=== PATIENT | female | born 1935 | race Caucasian/White ===

== ENCOUNTER 2016-09-13 18:47 | Observation (INO) | payer OTHER, BC ==
--- NOTE | 2016-09-13 19:02 | CPEKG ---
Heart Rate: 90 RR Interval: 667 P-R Interval: 96 QRSD Interval: 102 QT Interval: 392 QTC Interval: 480 P Inwood: 0 QRS Inwood: -61 T Wave Inwood: 106 EKG Severity - ABNORMAL ECG - EKG Impression: VENTRICULAR-PACED COMPLEXES EKG Impression: MARKEDLY POSTERIOR QRS AXIS Electronically Signed By: Jerod Carrillo 13-Sep-2016 20:37:08
--- NOTE | 2016-09-13 19:31 | EDPHY ---
H & P Time Seen by Provider: 09/13/16 19:23 HPI/ROS: Chief complaint. Chest pain HPI. 81-year-old female with known heart disease presents with 3 hour history of left anterior chest discomfort. She describes as pressure. No radiation. No shortness of breath. No previous similar symptoms. No fever cough. No unusual leg pain or swelling. No change in her discomfort with breathing, position, movement, exertion. Patient had a heart catheterization in June 2015 which shows non ischemic cardiomyopathy and mild to moderate nonobstructive coronary artery disease with lesions to 50% ROS Constitutional. no fever/chills, no weakness Eyes. no problems with vision ENT. no sore throat, no nasal drainage Cardiovascular. Chest pain Respiratory. no shortness of breath, no cough Abdominal. no abdominal pain, no nausea/vomiting, no diarrhea . no problems urinating MS. no calf pain/swelling, no neck/back pain, no joint pain Skin. no rash Lymph. no swollen glands Neuro. no headache, no dizziness, no difficulty walking or with speech Past Medical/Surgical History: Past medical history nonischemic cardiomyopathy, left bundle branch block, paroxysmal atrial fibrillation, moderate coronary artery disease, CHF, rheumatoid arthritis, psoriasis, chronic kidney disease, myelodysplastic syndrome, hypertension, pacer Social History: , nonsmoker, no alcohol Smoking Status: Former smoker Physical Exam: General Appearance: Alert well-developed female moderate distress vital signs are stable with O2 saturation 88% on room air Eyes: Pupils equal and round no pallor or injection. ENT, Mouth: Mucous membranes are moist. Respiratory: There are no retractions, lungs are clear to auscultation. Cardiovascular: Regular rate and rhythm. Gastrointestinal: Abdomen is soft and nontender, no masses, bowel sounds normal. Neurological: Awake and alert, sensory and motor exams grossly normal. Skin: Warm and dry, no rashes. Musculoskeletal: Neck is supple nontender. Extremities symmetrical, full range of motion. Psychiatric: Patient is oriented X 3, there is no agitation. Constitutional: Initial Vital Signs Temperature (C) 36 C 09/13/16 18:48 Heart Rate 95 09/13/16 18:48 Respiratory Rate 22 H 09/13/16 18:48 Blood Pressure 169/88 H 09/13/16 18:48 O2 Sat (%) 88 L 09/13/16 18:48 O2 Delivery Mode Room Air Allergies/Adverse Reactions: No Known Allergies Allergy (Unverified 07/21/15 15:20) Home Medications: Medication Instructions Recorded Calcium Carb W/Vit D [Calcium Carb 500 mg PO DAILY 07/21/15 W/Vit D 500/200 (*)] Ferrous Sulfate [Ferrous Sulf 325 325 mg PO DAILY 07/21/15 MG (*)] Multivitamins [Multivitamin (*)] 1 each PO DAILY 07/21/15 Folic Acid [Folic Acid 1 MG (*)] 1 mg PO DAILY #30 tab 08/15/15 Ascorbic Acid [Vitamin C 500 mg 500 mg PO DAILY 06/26/16 (*)] Pantoprazole Sodium [Protonix 40mg 20 mg PO DAILY 06/26/16 (*)] Ustekinumab [STELARA] 45 mg SQ Q90D 06/26/16 Acetamn/Diphenhydramine 500/25 1 each PO HS #0 tab 06/30/16 [Tylenol PM (*)] Amiodarone HCl [Pacerone (*)] 200 mg PO DAILY #30 tab 06/30/16 Atorvastatin Calcium [Lipitor 20 20 mg PO DAILY #0 tab 06/30/16 mg (*)] Dabigatran Etexilate Mesylate 75 mg PO BID #60 capsule 06/30/16 [Pradaxa] Atorvastatin Calcium [Lipitor 20 20 mg PO DAILY 09/13/16 mg (*)] Budesonide [Budesonide EC] 3 mg PO TID 09/13/16 Carvedilol [Coreg (*)] 6.25 mg PO BIDMEAL 09/13/16 Lisinopril [Zestril 2.5 mg (*)] 2.5 mg PO DAILY 09/13/16 Medical Decision Making - Diagnostics EKG Interpretation: EKG interpreted by me shows paced rhythm with left axis deviation and evidence for left bundle branch block. Interventricular conduction delay. No significant ST elevation or depression. Rate is 90 Procedures: IV normal saline, monitor, aspirin ED Course/Re-evaluation: On re-evaluation patient is stable no longer have any chest discomfort at 9:05 p.m.. However then she tells me that the pain is worse with deep breathing which previously when I asked her she had no exacerbating or relieving factors. A D-dimer is ordered. I discussed the case with who agrees to the admission Differential Diagnosis: I considered acute coronary syndrome, pneumonia, pulmonary embolus, pneumothorax - Data Points Laboratory Results: Laboratory Results 09/13/16 19:16 09/13/16 19:16 09/13/16 19:16 WBC 8.77 10^3/uL (3.80-9.50) RBC 4.13 L 10^6/uL (4.18-5.33) Hgb 12.6 g/dL (12.6-16.3) Hct 37.9 L % (38.0-47.0) MCV 91.8 fL (81.5-99.8) MCH 30.5 pg (27.9-34.1) MCHC 33.2 g/dL (32.4-36.7) RDW 14.7 % (11.5-15.2) Plt Count 156 10^3/uL (150-400) MPV 9.5 fL (8.7-11.7) Neut % (Auto) 75.1 H % (39.3-74.2) Lymph % (Auto) 10.3 L % (15.0-45.0) [place] % (Auto) 12.9 % (4.5-13.0) Eos % (Auto) 0.5 L % (0.6-7.6) Baso % (Auto) 0.6 % (0.3-1.7) Nucleat RBC Rel Count 0.0 % (0.0-0.2) Absolute Neuts (auto) 6.60 H 10^3/uL (1.70-6.50) Absolute Lymphs (auto) 0.90 L 10^3/uL (1.00-3.00) Absolute Monos (auto) 1.13 H 10^3/uL (0.30-0.80) Absolute Eos (auto) 0.04 10^3/uL (0.03-0.40) Absolute Basos (auto) 0.05 10^3/uL (0.02-0.10) Absolute Nucleated RBC 0.00 10^3/uL (0-0.01) Immature Gran % 0.6 % (0.0-1.1) Immature Gran # 0.05 10^3/uL (0.00-0.10) Sodium 143 mEq/L (134-144) Potassium 3.5 mEq/L (3.5-5.2) Chloride 104 mEq/L (97-110) Carbon Dioxide 26 mEq/l (22-31) Anion Gap 13 mEq/L (8-16) BUN 11 mg/dL (7-23) Creatinine 0.8 mg/dL (0.6-1.0) Estimated GFR > 60 Glucose 137 H mg/dL (70-100) Calcium 8.9 mg/dL (8.5-10.4) Troponin I 0.030 ng/mL (0-0.034) NT-Pro-B Natriuret Pep 894 H pg/mL (0-450) Medications Given: Discontinued Medications Aspirin (Aspirin) 324 mg PO EDNOW ONE Stop: 09/13/16 19:42 Last Admin: 09/13/16 20:03 Dose: 324 mg Departure - Departure Disposition: [facility] Inpatient Acute Clinical Impression: Chest pain Qualifiers: Chest pain type: unspecified Qualifier Code: (R07.9) Chest pain, unspecified Condition: Good Referrals: Wayne Winston MD [Primary Care Provider] - As per Instructions
[2016-09-13] MEDS ORDERED: ASPIRIN 81 MG CHEWABLE TAB PO ONE (19:41)
[2016-09-13 19:49] LABS: % IMMATURE GRANULYOCYTES 0.6 % (0.0-1.1); ABSOLUTE IMMATURE GRANULOCYTES 0.05 10^3/uL (0.00-0.10); ADD DIFF? NO; ADD MORPH? NO; ADD SCAN? NO; ATYPICAL LYMPHOCYTE FLAG 0 (0-99); FRAGMENT RBC FLAG 20 (0-99); HEMATOCRIT 37.9 % (38.0-47.0); HEMOGLOBIN 12.6 g/dL (12.6-16.3); LEFT SHIFT FLG 0 (0-99); LIPEMIA HEMOLYSIS FLAG 80 (0-99); MEAN CELL HEMOGLOBIN 30.5 pg (27.9-34.1); MEAN CELL HEMOGLOBIN CONCENTR. 33.2 g/dL (32.4-36.7); MEAN CELL VOLUME 91.8 fL (81.5-99.8); MEAN PLATELET VOLUME 9.5 fL (8.7-11.7); PLATELET CLUMPS FLAG 0 (0-99); PLATELET COUNT 156 10^3/uL (150-400); RED BLOOD CELL COUNT 4.13 10^6/uL (4.18-5.33); RED CELL DISTRIBUTION WIDTH 14.7 % (11.5-15.2)
[2016-09-13 19:58] LABS: ANION GAP 13 mEq/L (8-16); CALCIUM 8.9 mg/dL (8.5-10.4); CARBON DIOXIDE 26 mEq/l (22-31); CHLORIDE 104 mEq/L (97-110); CREATININE 0.8 mg/dL (0.6-1.0); GLOMERULAR FILTRATION RATE > 60; GLUCOSE 137 mg/dL (70-100); POTASSIUM 3.5 mEq/L (3.5-5.2); SODIUM 143 mEq/L (134-144)
[2016-09-13] MEDS ORDERED: NOREPINEPHRINE BITARTRATE 4 MG in D5W 500 ML IV ONE (21:04)
--- NOTE | 2016-09-13 21:10 | DX ---
Portable AP Upright Chest September 13, 2016, 7:53 p.m. Clinical History: 81-year-old female with chest pain. Comparison Studies: Chest, dated July 08, 2016, and June 30, 2016. Findings: Again noted is a trilead left subclavian transvenous pacemaker with the proximal lead in th e right atrium and distal leads in the right ventricle and projected over the coronary sinus. There a re mild hypoventilatory features. There is borderline-cardiomegaly, slightly augmented by the portabl e AP technique. There is some mild peribronchial thickening. There is no focal infiltrate, peripheral interstitial edema, or pneumothorax. There is a retrocardiac hiatal hernia which has been present be fore. There are surgical clips in the right upper quadrant of the abdomen. There is a levorotatory melita mbar scoliosis with multilevel degenerative changes. Impression: 1. Status post prior pacemaker, with no evidence of a pneumothorax. 2. Borderline-cardiomegaly with peribronchial thickening. 3. Retrocardiac hiatal hernia.
[2016-09-13] MEDS ORDERED: ACETAMN/DIPHENHYDRAMINE 500/25MG TAB PO SCH (23:30)
[2016-09-13] MEDS ORDERED: MAALOX/LIDO/HYOSC GI COCKTAIL 55 ML BOTTLE PO ONE (23:47)
[2016-09-13] MEDS ORDERED: CALCIUM CARBONATE 500 MG CHEWABLE TAB PO PRN (23:47)
--- NOTE | 2016-09-13 23:53 | PDGENHP ---
History and Physical - Chief Complaint Acute chest pain - History of Present Illness PCP: Dr. Winston Window Installer: Dr. Reynoso HPI: 81-year-old female presents with acute chest pain characterized as pressure located in her central chest, exacerbated by deep inspiration. Onset of symptoms was on the afternoon of presentation and began at rest. Duration has been persistent thereafter and continues to persist. She denies any preceding cough shortness of breath viral symptoms or sore throat. She reports that she has never experienced similar symptoms in the past. She did take a pantoprazole in an attempt to alleviate the symptoms and did not modify them. The patient has otherwise been taking all of her home medications as prescribed. She denies any nausea vomiting or abdominal discomfort. She reports that prior to the onset of symptoms, she was otherwise in her usual state of health. History Information - Allergies/Home Medication List Allergies/Adverse Reactions: No Known Allergies Allergy (Unverified 07/21/15 15:20) Home Medications: Calcium Carb W/Vit D [Calcium Carb W/Vit D 500/200 (*)] 500 mg PO DAILY [Last Taken 09/13/16] Multivitamins [Multivitamin (*)] 1 each PO DAILY 07/21/15 [Last Taken 09/13/16] Ustekinumab [STELARA] 45 mg SQ Q90D 06/26/16 [Last Taken Unknown] Atorvastatin Calcium [Lipitor 20 mg (*)] 20 mg PO DAILY 09/13/16 [Last Taken 02/22] Budesonide [Budesonide EC] 9 mg PO DAILY 09/13/16 [Last Taken 09/13/16] Carvedilol [Coreg (*)] 6.25 mg PO BIDMEAL 09/13/16 [Last Taken 09/13/16 09:00] Lisinopril [Zestril 2.5 mg (*)] 2.5 mg PO DAILY 09/13/16 [Last Taken 09/13/16] Pantoprazole Sodium [Protonix] 20 mg PO DAILY 09/13/16 [Last Taken 09/13/16] I have personally reviewed and updated: family history, medical history, social history, surgical history - Past Medical History atrial fibrillation (Paroxysmal, with sick sinus syndrome and symptomatic bradycardia, status post permanent pacemaker June of 2016), coronary artery disease (Mild to moderate nonobstructive disease, less than 50% stenosis, most recent cardiac catheterization June of 2016), hypertension Additional medical history: Left bundle branch block, nonischemic cardiomyopathy with ejection fraction of 30% and Lagrange heart Association class 2 symptoms, chronic kidney disease stage 3, mild dysplastic syndrome, osteoporosis, rheumatoid arthritis, neuropathy - Surgical History Additional surgical history: Permanent pacemaker June of 2016, cholecystectomy, hip surgery, tonsillectomy - Family History Additional family history: Mother with cancer, father of peritonitis - Social History Smoking Status: Former smoker Alcohol Use: Occasionally (Not heavy) Drug Use: None Additional social history: Normally independent in her ADLs Review of Systems ROS: 10pt was reviewed & negative except for what was stated in HPI & below Cardiac: Reports: chest pain Physical Exam Temp Pulse Resp BP Pulse Ox 36.6 C 87 18 135/77 H 94 09/13/16 22:17 09/13/16 22:17 09/13/16 22:17 09/13/16 22:17 09/13/16 22:17 Constitutional: no apparent distress, appears nourished, not in pain Eyes: PERRL, anicteric sclera, EOMI Ears, Nose, Mouth, Throat: moist mucous membranes, hearing normal, ears appear normal, no oral mucosal ulcers Cardiovascular: regular rate and rhythym, systolic murmur (2/6 systolic murmur at the sternum and 1/6 systolic murmur at the apex), No tachycardia, No edema Respiratory: no respiratory distress, no rales or rhonchi, clear to auscultation Gastrointestinal: normoactive bowel sounds, soft, non-tender abdomen, no palpable masses Skin: warm, normal color, no rashes or abrasions, no fluctuance, no induration, No mottled Musculoskeletal: other (Full range of motion bilateral shoulders without any pain, full range of motion of neck without any pain, no tenderness to palpation over the anterior chest intercostals or pectoralis muscles) Neurologic: AAOx3, sensation intact bilaterally, No weakness Psychiatric: interacting appropriately, not anxious, not encephalopathic, thought process linear Lab Data & Imaging Review 09/13/16 19:16 09/13/16 19:16 WBC 8.77 10^3/uL (3.80-9.50) 09/13/16 19:16 RBC 4.13 10^6/uL (4.18-5.33) L 09/13/16 19:16 Hgb 12.6 g/dL (12.6-16.3) 09/13/16 19:16 Hct 37.9 % (38.0-47.0) L 09/13/16 19:16 MCV 91.8 fL (81.5-99.8) 09/13/16 19:16 MCH 30.5 pg (27.9-34.1) 09/13/16 19:16 MCHC 33.2 g/dL (32.4-36.7) 09/13/16 19:16 RDW 14.7 % (11.5-15.2) 09/13/16 19:16 Plt Count 156 10^3/uL (150-400) 09/13/16 19:16 MPV 9.5 fL (8.7-11.7) 09/13/16 19:16 Neut % (Auto) 75.1 % (39.3-74.2) H 09/13/16 19:16 Lymph % (Auto) 10.3 % (15.0-45.0) L 09/13/16 19:16 [place] % (Auto) 12.9 % (4.5-13.0) 09/13/16 19:16 Eos % (Auto) 0.5 % (0.6-7.6) L 09/13/16 19:16 Baso % (Auto) 0.6 % (0.3-1.7) 09/13/16 19:16 Nucleat RBC Rel Count 0.0 % (0.0-0.2) 09/13/16 19:16 Absolute Neuts (auto) 6.60 10^3/uL (1.70-6.50) H 09/13/16 19:16 Absolute Lymphs (auto) 0.90 10^3/uL (1.00-3.00) L 09/13/16 19:16 Absolute Monos (auto) 1.13 10^3/uL (0.30-0.80) H 09/13/16 19:16 Absolute Eos (auto) 0.04 10^3/uL (0.03-0.40) 09/13/16 19:16 Absolute Basos (auto) 0.05 10^3/uL (0.02-0.10) 09/13/16 19:16 Absolute Nucleated RBC 0.00 10^3/uL (0-0.01) 09/13/16 19:16 Immature Gran % 0.6 % (0.0-1.1) 09/13/16 19:16 Immature Gran # 0.05 10^3/uL (0.00-0.10) 09/13/16 19:16 D-Dimer < 0.27 ug/mLFEU (0.00-0.50) 09/13/16 19:16 Sodium 143 mEq/L (134-144) 09/13/16 19:16 Potassium 3.5 mEq/L (3.5-5.2) 09/13/16 19:16 Chloride 104 mEq/L (97-110) 09/13/16 19:16 Carbon Dioxide 26 mEq/l (22-31) 09/13/16 19:16 Anion Gap 13 mEq/L (8-16) 09/13/16 19:16 BUN 11 mg/dL (7-23) 09/13/16 19:16 Creatinine 0.8 mg/dL (0.6-1.0) 09/13/16 19:16 Estimated GFR > 60 09/13/16 19:16 Glucose 137 mg/dL (70-100) H 09/13/16 19:16 Calcium 8.9 mg/dL (8.5-10.4) 09/13/16 19:16 Troponin I 0.030 ng/mL (0-0.034) 09/13/16 19:16 NT-Pro-B Natriuret Pep 894 pg/mL (0-450) H 09/13/16 19:16 Visualized and Interpreted Chest x-ray results: Yes Chest X-Ray results: other (Mild peribronchial thickening without any focal airspace disease, permanent pacemaker) Visualized and Interpreted EKG results: Yes EKG Interpretation: Positive for: other (Ventricularly paced) Assessment & Plan Assessment: 81-year-old female presents with acute chest pain in the setting of nonischemic cardiomyopathy and paroxysmal atrial fibrillation Plan: 1. Chest pain. Acute, new problem this provider, further workup indicated. Rule out acute coronary syndrome with cycled cardiac enzymes, monitor for rapid AFib on telemetry -no evidence of congestive heart failure exacerbation -most likely etiology is either gastroesophageal reflux disease or pleuritis, given the patient had no evidence of obstructive coronary disease on cardiac catheterization 2 months ago -if cardiac enzymes are negative, would not recommend further cardiac risk stratification given her recent cardiac catheterization -empirically give Maalox and Tums as needed tonight, continue home pantoprazole -if cardiac enzymes negative in a.m., give low-dose naproxen for possible pleuritis and monitor for signs of bleeding in the outpatient setting 2. Nonischemic cardiomyopathy. Chronic systolic congestive heart failure without any evidence of exacerbation, ejection fraction 30% -continue home medications including VICKY inhibitor, beta-pedro 3. Paroxysmal atrial fibrillation. Reviewed outside records including discharge summary by Dr. Graham Reynoso from 06/30/2016, reporting that patient presented for exertional intolerance, was found to have AFib with RVR and symptomatic bradycardia, pacemaker was placed, she was initially on amiodarone and Coreg, she is currently on renally dosed Pradaxa -continue beta-pedro, amnio, Pradaxa -continue monitor on telemetry for rapid ventricular response 4. Hypertension. Chronic, acute elevation most likely secondary to acute discomfort, continue home medications and monitor Diet. Cardiac Prophylaxis. Moderate risk patient, continue on Pradaxa Code. Full Disposition. Anticipated discharge is 09/14/15, pending further workup and evaluation as outlined above.
[2016-09-14 05:35] VITALS: O2SAT 98
[2016-09-14 05:37] LABS: % IMMATURE GRANULYOCYTES 0.5 % (0.0-1.1); ABSOLUTE IMMATURE GRANULOCYTES 0.04 10^3/uL (0.00-0.10); ADD DIFF? NO; ADD MORPH? NO; ADD SCAN? NO; ATYPICAL LYMPHOCYTE FLAG 0 (0-99); FRAGMENT RBC FLAG 0 (0-99); HEMOGLOBIN 10.7 g/dL (12.6-16.3); LEFT SHIFT FLG 0 (0-99); LIPEMIA HEMOLYSIS FLAG 80 (0-99); MEAN CELL HEMOGLOBIN 30.1 pg (27.9-34.1); MEAN CELL HEMOGLOBIN CONCENTR. 33.4 g/dL (32.4-36.7); MEAN CELL VOLUME 90.1 fL (81.5-99.8); MEAN PLATELET VOLUME 9.1 fL (8.7-11.7); PLATELET CLUMPS FLAG 0 (0-99); PLATELET COUNT 122 10^3/uL (150-400); RED BLOOD CELL COUNT 3.55 10^6/uL (4.18-5.33)
[2016-09-14 06:18] LABS: ALANINE AMINOTRANSFERASE 31 IU/L (9-52); ALBUMIN 3.3 g/dL (3.5-5.0); ALKALINE PHOSPHATASE 38 IU/L (38-126); ANION GAP 8 mEq/L (8-16); ASPARTATE AMINOTRANSFERASE 15 IU/L (14-46); CARBON DIOXIDE 26 mEq/l (22-31); CHLORIDE 107 mEq/L (97-110); CREATININE 0.9 mg/dL (0.6-1.0); GLOMERULAR FILTRATION RATE > 60; GLUCOSE 131 mg/dL (70-100); POTASSIUM 3.3 mEq/L (3.5-5.2); SODIUM 141 mEq/L (134-144); TOTAL PROTEIN 5.6 g/dL (6.3-8.2)
[2016-09-14 06:28] LABS: TROPONIN I 0.029 ng/mL (0-0.034)
[2016-09-14 08:22] VITALS: BP 102/58; RESP 18; TEMP 98.1
[2016-09-14] MEDS ORDERED: CALCIUM CARB W/VIT D 500 MG TAB PO SCH (09:00)
[2016-09-14] MEDS ORDERED: MULTIVITAMINS 1 EACH TAB PO SCH (09:00)
[2016-09-14] MEDS ORDERED: ATORVASTATIN CALCIUM 20 MG TAB PO SCH (09:00)
[2016-09-14] MEDS ORDERED: LISINOPRIL 2.5 MG TAB PO SCH (09:00)
[2016-09-14] MEDS ORDERED: NAPROXEN SODIUM 220 MG TAB PO SCH (09:00)
[2016-09-14] MEDS ORDERED: AMIODARONE HCL 200 MG TAB PO SCH (09:00)
[2016-09-14] MEDS ORDERED: BUDESONIDE 3 MG EC CAP PO SCH (09:00)
[2016-09-14] MEDS ORDERED: PANTOPRAZOLE SODIUM 40 MG TAB PO SCH (09:00)
[2016-09-14] MEDS ORDERED: PROTOCOL POTASSIUM 1 DOSE MISC PRN (09:40)
[2016-09-14] MEDS ORDERED: PROTOCOL MAGNESIUM 1 DOSE IV PRN (09:40)
[2016-09-14] MEDS: DABIGATRAN ETEXILATE MESYL 75 MG CAP PO SCH ×2 (10:17)
[2016-09-14] MEDS: CARVEDILOL 6.25 MG TAB PO SCH ×2 (10:29)
[2016-09-14 10:30] VITALS: PULSE 86
--- NOTE | 2016-09-14 12:14 | SOAPPROG ---
SOAP Progress Note Assessment/Plan: Assessment: 1. New acute onset right sided inspiratory chest discomfort yesterday afternoon , slightly better today. Low suspicion for cardiac etiology. Considered pericarditis vs. afib vs. device. No positional component, no recent illness. Telemetry is unremarkable. 2. S/p biventricular PPM implantation on 06/28/16. 3. NICM. Echocardiogram in our office on 09/10/16 showed slightly improved LVEF of 45-50%. ntBNP 894. 4. Mild non-obstructive CAD by [facility] on 06/26/16. No PCI performed. 5. LBBB. 6. History of paroxysmal atrial fibrillation w/ RVR. She remains on Pradaxa 75 mg bid. Amiodarone was discontinued at the time of 07/25/16 office visit but it is possible she may still be taking it. 7. Sick sinus syndrome 8. Mild carotid artery disease w/ flow limiting stenoses. 9. 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 10. Rheumatoid arthritis. Will delay scheduled biologic therapy. Followed by Dr. Martinez. 11. Recent weight loss / cachexia, improving. Plan: 1. Continue naproxen 200 mg once daily. 2. Discontinuation of amiodarone. This was discussed with patient and . 3. Continue all other medications as directed. 4. OK to discharge home from a cardiac standpoint. 5. Scheduled follow up w/ Dr. Salinas on Friday09/20/15. 09/14/16 12:45 Subjective: Still having pleuritic chest discomfort but symptoms are improved c/t last night. No other symptoms. Had been in usual state of health and feeling well leading up to start of chest pain yesterday afternoon. Denies any chest wall muscle strain. Denies exertional intolerance. Objective: Vital Signs Temp Pulse Resp BP Pulse Ox 36.7 C 86 18 102/58 L 98 09/14/16 08:21 09/14/16 10:29 09/14/16 08:21 09/14/16 10:29 09/14/16 08:21 Laboratory Results 09/14/16 05:30 09/14/16 05:30 - Time Spent With Patient Time Spent With Patient: 40 minutes spent in coordinating care, physical exam, and documentation. Physical Exam - Physical Exam General Appearance: WD/WN, alert, no apparent distress, thin Respiratory: chest non-tender, lungs clear, normal breath sounds Cardiac/Chest: normal peripheral pulses, regular rate, rhythm, systolic murmur ( I/ RD RUSB) Extremities: normal range of motion, non-tender, normal inspection, normal capillary refill Neuro/Psych: no motor/sensory deficits, alert, normal mood/affect, oriented x 3 ICD10 Worksheet Patient Problems: Problems Problem Status Diagnosed Back pain Acute Chest pain Acute Sacral fracture Acute Guillain Langford syndrome Acute Pancytopenia, acquired Acute 12/21/13 Hypertension Chronic Osteoporosis Chronic Psoriasis Chronic Rheumatoid arteritis Chronic
--- NOTE | 2016-09-14 13:25 | PDDCSUM ---
Discharge Summary Discharge Summary: Dates of service 09/13-09/14/16 # chest pain: with recent cath and atypical sounding by description, mostly pleuritic. D dimer negative, trops neg, no changes on ecg. Appreciate cardiology input. Possibly related to pericarditis, nsaids continued, f/u with cardiology. # chronic NICM: with systolic dysfunction and EF of 25%, appears euvolemic, continue current meds including BB, radha-i, asa, statin # paroxysmal a fib: with underlying sss as well, continued bb/pradaxa but dc amiodarone per cardiology # CAD: as above, continue current meds # RA/psoriasis: continue stelara, previously on mtx with resultant pancytopenia # prior medical history: GBS, MDS, peripheral neuropathy, HTN, protein calorie malnutrition--continue op medications # observation status, dc home today Medications: d/c amiodarone, continue other home meds F/U with PCP [facility] Cardiology Edgardo
== END 2016-09-14 15:25 | disposition home or self-care (01) ==
LOC: F1N 21:56
PROVIDERS: ADMIT Internal Medicine; ATTEND Internal Medicine
DX: R07.9 Chest pain, unspecified (principal); I42.9 Cardiomyopathy, unspecified; I25.10 Atherosclerotic heart disease of native coronary artery without angina pectoris; I48.0 Paroxysmal atrial fibrillation; I13.0 Hypertensive heart and chronic kidney disease with heart failure and stage 1 through stage 4 chronic kidney disease, or unspecified chronic kidney disease; N18.9 Chronic kidney disease, unspecified; I50.9 Heart failure, unspecified; M06.9 Rheumatoid arthritis, unspecified; L40.59 Other psoriatic arthropathy; Z95.0 Presence of cardiac pacemaker
CPT/HCPCS: 71010; 93005; 99285; G0378

== ENCOUNTER → 2017-03-17 | Outpatient (CLI) | payer OTHER, BC | LOC: BMCIMAGING 14:05 | PROVIDERS: ATTEND Family Medicine | DX: S42.252A Displaced fracture of greater tuberosity of left humerus, initial encounter for closed fracture (principal); S42.122A Displaced fracture of acromial process, left shoulder, initial encounter for closed fracture ==

== ENCOUNTER → 2017-03-28 | Outpatient (CLI) | payer OTHER, BC | LOC: BMCIMAGING 09:26 | PROVIDERS: ATTEND Physician Assistant | DX: S42.292D Other displaced fracture of upper end of left humerus, subsequent encounter for fracture with routine healing (principal); Z95.0 Presence of cardiac pacemaker ==

== ENCOUNTER → 2017-04-18 | Outpatient (CLI) | payer OTHER, BC | LOC: BMCIMAGING 10:03 | PROVIDERS: ATTEND Physician Assistant | DX: S42.252D Displaced fracture of greater tuberosity of left humerus, subsequent encounter for fracture with routine healing (principal) ==

== ENCOUNTER → 2017-05-06 | Outpatient (CLI) | payer OTHER, BC | LOC: FIMAGING 15:46 | PROVIDERS: ATTEND Psychiatry & Neurology Neurology | DX: M48.02 Spinal stenosis, cervical region (principal); M50.31 Other cervical disc degeneration, high cervical region; M46.92 Unspecified inflammatory spondylopathy, cervical region ==

== ENCOUNTER → 2017-05-20 | Outpatient (CLI) | payer OTHER, BC ==
[~2017-05-20] MED LIST: IOPAMIDOL (ISOVUE-M 300) 15 ML VIAL ONE; LIDOCAINE 1% 300 MG/30 ML SDV ONE
== END ==
LOC: FIMAGING 09:26
PROVIDERS: ATTEND Psychiatry & Neurology Neurology
PROC: B01B1ZZ Fluoroscopy of Spinal Cord using Low Osmolar Contrast (ICD-10-PCS; principal; 2017-05-20)
DX: M41.82 Other forms of scoliosis, cervical region (principal); M50.30 Other cervical disc degeneration, unspecified cervical region
CPT/HCPCS: 62302; 72126; 72240; Q9967

== ENCOUNTER → 2017-05-20 | Outpatient (CLI) | payer OTHER, BC | LOC: FIMAGING 09:24 | PROVIDERS: ATTEND Psychiatry & Neurology Neurology | PROC: B01B1ZZ Fluoroscopy of Spinal Cord using Low Osmolar Contrast (ICD-10-PCS; principal; 2017-05-20) | DX: M41.82 Other forms of scoliosis, cervical region (principal); M50.30 Other cervical disc degeneration, unspecified cervical region ==

== ENCOUNTER → 2017-05-21 | Outpatient (CLI) | payer OTHER, BC | LOC: BMCIMAGING 10:14 | PROVIDERS: ATTEND Physician Assistant | DX: S42.252D Displaced fracture of greater tuberosity of left humerus, subsequent encounter for fracture with routine healing (principal) ==

== ENCOUNTER → 2017-09-19 | Outpatient (CLI) | payer OTHER, BC | LOC: FIMAGING 11:14 | PROVIDERS: ATTEND Internal Medicine Cardiovascular Disease | DX: R09.89 Other specified symptoms and signs involving the circulatory and respiratory systems (principal) ==

== ENCOUNTER → 2018-11-24 | Outpatient (CLI) | payer OTHER, BC | LOC: BMCIMAGING 14:44 | PROVIDERS: ATTEND Internal Medicine Rheumatology | DX: M19.041 Primary osteoarthritis, right hand (principal); M24.841 Other specific joint derangements of right hand, not elsewhere classified ==